=== PATIENT | female | born 1970 | race Two or more races ===

== ENCOUNTER 2023-02-22 03:32 | Emergency (ER) | payer OTHER ==
[~2023-02-22] VITALS: Ht 170.2 cm; Wt 79.0 kg
[2023-02-22 03:40] VITALS: O2SAT 95
[2023-02-22] MEDS ORDERED: SODIUM CHLORIDE 0.9% 1,000 ML IV ONE (04:30)
[2023-02-22] MEDS ORDERED: METOCLOPRAMIDE HCL 10MG/2ML VIAL IV ONE (04:30)
[2023-02-22] MEDS ORDERED: IBUP-2029 MT (06:40)
[2023-02-22] MEDS ORDERED: KETOROLAC 30MG/ML VIAL IV ONE (07:45)
[2023-02-22 08:29] VITALS: BP 121/72; PULSE 80; RESP 21; TEMP 97.3
== END 2023-02-22 08:36 | disposition home or self-care (01) ==
LOC: ER 05:21
DX: G43.909 Migraine, unspecified, not intractable, without status migrainosus (principal); G51.0 Bell's palsy; I10 Essential (primary) hypertension; E78.00 Pure hypercholesterolemia, unspecified; Z88.6 Allergy status to analgesic agent; Z88.5 Allergy status to narcotic agent; Z86.73 Personal history of transient ischemic attack (TIA), and cerebral infarction without residual deficits
CPT/HCPCS: 96361; 96374; 99283; J2765; J7030; Z7610 ×2